=== PATIENT | male | born 1985 | race Caucasian/White ===

== ENCOUNTER 2017-03-23 17:53 | Emergency (ER) | payer OTHER ==
[2017-03-23 17:56] VITALS: BP 131/99; PULSE 82; RESP 20; TEMP 97.5
[2017-03-23] MEDS ORDERED: IBUPROFEN 600 MG TAB PO STA (18:20)
--- NOTE | 2017-03-23 18:34 | ED ---
General Adult HPI - General Chief complaint: Extremity Injury, Lower Stated complaint: hand pain Time Seen by Provider: 03/23/17 18:13 Source: patient Mode of arrival: ambulatory Limitations: no limitations - History of Present Illness Initial comments: 32-year-old male patient presents to emergency department today for evaluation of right hand pain. Patient states that he was working out in the yard yesterday was working with a trailer when the tongue fell on his hand and crushed between that and the cement. Patient states he has been having severe hand pain since. Patient states he has been icing the area without relief of pain. Patient states he is having some numbness to his fifth finger. Patient denies any wrist pain, elbow pain, or shoulder injury. Patient states he did have a previous fracture to the same hand when he was younger. Patient is able to move all fingers. - Related Data Home Medications Medication Instructions Recorded Confirmed Gabapentin 800 mg PO TID 11/19/15 12/08/15 Omeprazole [PriLOSEC] 40 mg PO DAILY 03/23/17 03/23/17 Previous Rx's Medication Instructions Recorded Hydrocodone/Acetaminophen [Perry 1 tab PO Q6HR PRN #20 tab 03/23/17 5-325] Allergies Allergy/AdvReac Type Severity Reaction Status Date / Time No Known Allergies Allergy Verified 03/23/17 17:56 Review of Systems ROS Statement: Those systems with pertinent positive or pertinent negative responses have been documented in the HPI. ROS Other: All systems not noted in ROS Statement are negative. Past Medical History Past Medical History: GERD/Reflux, Musculoskeletal Disorder Additional Past Medical History / Comment(s): heart murmur, renal disease as child History of Any Multi-Drug Resistant Organisms: None Reported Past Surgical History: No Surgical Hx Reported Past Anesthesia/Blood Transfusion Reactions: Unable to Obtain Past Psychological History: No Psychological Hx Reported Smoking Status: Current some day smoker Past Alcohol Use History: Rare Past Drug Use History: Marijuana - Past Family History Mother Family Medical History: No Reported History General Exam Limitations: no limitations General appearance: alert, in no apparent distress Head exam: Present: atraumatic, normocephalic, normal inspection Eye exam: Present: normal appearance, PERRL, EOMI. Absent: scleral icterus, conjunctival injection, periorbital swelling Respiratory exam: Present: normal lung sounds bilaterally. Absent: respiratory distress, wheezes, rales, rhonchi, stridor Cardiovascular Exam: Present: regular rate, normal rhythm, normal heart sounds. Absent: systolic murmur, diastolic murmur, rubs, gallop, clicks Extremities exam: Present: tenderness (Tenderness over the first last week of the hand especially over the fifth metacarpal and over the fifth MCP joint.), normal capillary refill. Absent: normal inspection (Right dorsal aspect of hand exhibits ecchymosis.), joint swelling (Right hand swelling noted) Neurological exam: Present: alert, oriented X3, CN II-XII intact Psychiatric exam: Present: normal affect, normal mood Skin exam: Present: warm, dry, intact, normal color. Absent: rash Course Vital Signs 03/23/17 17:54 Temperature 97.5 F L Pulse Rate 82 Respiratory 20 Rate Blood Pressure 131/99 O2 Sat by Pulse 99 Oximetry Medical Decision Making - Medical Decision Making 32-year-old male patient presented to emergency department today for evaluation of right hand injury. X-ray does show an acute fracture of the distal fifth metacarpal. X-ray also shows old healed fractures, but no displacement. Patient does admit to having previous hand injury he felt may have been broken without having x-rays or evaluation. Patient will be placed in an ulnar gutter splint given prescription for pain medication and instructions to ice and elevate. Patient instructed to follow up with orthopedics for further evaluation as well as permanent cast placement. Patient started to return for any new, worsening, or concerning symptoms. Patient given instructions regarding splint care. Return parameters discussed. Patient verbalized understanding and agreed with this plan. - Radiology Data Radiology results: report reviewed, image reviewed Three-view x-ray of the right hand reveals nondisplaced oblique fracture of the distal fifth metacarpal. There is deformity of the fifth metacarpal consistent with an old healed fracture as well. There is no dislocation. Joint spaces are fairly normal. Impression by Dr. Hong reveals acute and old fractures of the fifth metacarpal. No displacement. Disposition Clinical Impression: Fracture of fifth metacarpal bone Disposition: HOME SELF-CARE Condition: Good Instructions: Hand Fracture (ED) Additional Instructions: Keep splint clean and dry. Do not remove splint. Follow-up with orthopedics for further evaluation and permanent cath placement. Take pain medications as needed for pain. Rest, ice, and elevate the extremity. Return for any new, worsening, or concerning symptoms. Prescriptions: Hydrocodone/Acetaminophen [Perry 5-325] 1 tab PO Q6HR PRN #20 tab PRN Reason: Pain Referrals: Charles Celaya MD [Primary Care Provider] - 1-2 days Juan A Jennings DO [Doctor of Osteopathic Medicine] - 1-2 days Time of Disposition: 18:59
[2017-03-23] MEDS ORDERED: HYDROcodone/APAP 5-325MG 1 EACH TAB PO STA (18:43)
--- NOTE | 2017-03-23 18:43 | XR ---
EXAMINATION TYPE: XR hand complete RT DATE OF EXAM: 03/23/2017 COMPARISON: NONE HISTORY: Pain TECHNIQUE: 3 views FINDINGS: There is nondisplaced oblique fracture of the distal fifth metacarpal. There is deformity o f fifth metacarpal consistent with an old healed fracture as well. There is no dislocation. Joint spa suma are fairly normal. IMPRESSION: Acute and old fractures of the fifth metacarpal. No displacement.
== END 2017-03-23 19:01 | disposition home or self-care (01) ==
LOC: EC 17:53
DX: S62.336A Displaced fracture of neck of fifth metacarpal bone, right hand, initial encounter for closed fracture (principal); K21.9 Gastro-esophageal reflux disease without esophagitis; F17.200 Nicotine dependence, unspecified, uncomplicated; Z79.899 Other long term (current) drug therapy; W23.0XXA Caught, crushed, jammed, or pinched between moving objects, initial encounter; Y93.89 Activity, other specified; Y92.096 Garden or yard of other non-institutional residence as the place of occurrence of the external cause
CPT/HCPCS: 29125; 99283